=== PATIENT | female | born 1955 | race African-American/Black ===

== ENCOUNTER 2024-04-30 12:22 | Inpatient (IN) | payer MEDICARE, MEDICAID ==
[~2024-04-30] VITALS: Ht 162.6 cm; Wt 61.8 kg
[2024-04-30 14:24] LABS: BASOPHILS % 0.4 % (0.0-2.0); EOSINOPHILS % 0.3 % (0.0-5.0); HEMOGLOBIN. 12.8 g/dL (12.0-16.0); LYMPHOCYTES % 22.5 % (20.0-50.0); MEAN CORPUSCULAR HEMOGLOBIN 29.7 pg (28.0-32.0); MEAN CORPUSCULAR HGB CONC 32.7 g/dL (31.0-37.0); MEAN CORPUSCULAR VOLUME 90.9 fL (81.0-99.0); MEAN PLATELET VOLUME 8.8 fl (7.4-10.4); MONOCYTES % 5.2 % (2.0-8.0); NEUTROPHILS % 71.6 % (40.0-76.0); PLATELET 499 x1000/uL (130-400); RED BLOOD CELL COUNT 4.29 mill/uL (4.2-5.4); RED CELL DISTRIBUTION WIDTH 13.9 % (11.6-14.6)
[2024-04-30 14:29] LABS: CHLORIDE 103 mEq/L (98-107); POTASSIUM 3.4 mEq/L (3.5-5.1); SODIUM 137 mEq/L (136-145)
[2024-04-30 14:30] LABS: CARBON DIOXIDE 23 mEq/L (21-32)
[2024-04-30] MEDS ORDERED: HEPARIN 5000 UNITS/ML VIAL IV SCH ×2 (14:30→14:45)
[2024-04-30] MEDS ORDERED: HEPARIN 25,000 UNITS PREMIX 250 ML IV PRN (14:30)
[2024-04-30 14:31] LABS: CALCIUM 11.3 mg/dL (8.7-10.4)
[2024-04-30 14:35] LABS: CREATININE 1.1 mg/dL (0.6-1.0)
[2024-04-30 14:36] LABS: GLUCOSE 162 mg/dL (70-105); UREA NITROGEN BLOOD 13 mg/dL (9-23)
[2024-04-30 14:37] LABS: ALANINE AMINOTRANSFERASE < 7 IU/L (10-49); ALBUMIN 5.2 g/dL (3.2-4.8); ASPARTATE AMINOTRANSFERASE 20 IU/L (<34)
[2024-04-30 14:38] LABS: BILIRUBIN TOTAL 0.6 mg/dL (0.1-1.0); PROTEIN TOTAL 8.8 g/dL (6.0-8.3)
[2024-04-30 14:54] LABS: TROPONIN I HIGH SENSITIVITY 6 ng/L (3.0-34)
[2024-04-30] MEDS ORDERED: VANCOMYCIN 1G PREMIX 200 ML IV SCH (15:45)
[2024-04-30] MEDS ORDERED: LACTATED RINGERS 1,000 ML IV SCH (15:45)
[2024-04-30] MEDS: MORPHINE SULFATE 4 MG/ML INJ (FOR IV/IM USE) IV ONE (15:45)
[2024-04-30] MEDS ORDERED: CEFEPIME 2GM IN DEXT 5% 100ML IV ONE (15:45)
[2024-04-30] MEDS: METRONIDAZOLE 500 MG PREMIX 100 ML IV ONE (15:45)
[2024-04-30] MEDS ORDERED: CEFEPIME 2GM/100ML 100 ML IV NR (16:00)
[2024-04-30] MEDS ORDERED: HEPARIN BOLUS PRN aPTT 37-44 IV ×2 (16:00)
[2024-04-30] MEDS ORDERED: HEPARIN BOLUS PRN aPTT <36 IV ×2 (16:00)
[2024-04-30] MEDS: IOHEXOL-350 100 ML BOTTLE ONE ×2 (17:15→21:28)
[2024-04-30 18:08] VITALS: BP 188/108; PULSE 116; RESP 18; TEMP 37.1964
[2024-04-30 18:15] VITALS: BP 188/108; PULSE 116; RESP 18; TEMP 37.2252; O2SAT 99
[2024-04-30] MEDS ORDERED: ONDANSETRON HCL 4MG/2ML INJ IV PRN (18:15)
[2024-04-30] MEDS ORDERED: KETOROLAC 30MG/ML VIAL IV PRN (18:15)
[2024-04-30] MEDS: DEXT 5%/LACTATED RINGERS 1,000 ML IV SCH (18:15)
[2024-04-30] MEDS ORDERED: GUAIFENESIN 200MG/10ML SUGAR FREE UDC PO PRN (18:15)
[2024-04-30] MEDS ORDERED: IPRATROPIUM/ALBUTEROL 0.5-3(2.5)MG/3ML NEB NEB PRN (18:15)
[2024-04-30] MEDS ORDERED: ACETAMINOPHEN 325MG TABLET PO PRN ×2 (18:15)
[2024-04-30] MEDS ORDERED: TRAMADOL 50MG TABLET PO PRN (18:15)
[2024-04-30] MEDS ORDERED: ZOLPIDEM TARTRATE 5MG TABLET PO PRN (18:15)
[2024-04-30] MEDS ORDERED: MAGNESIUM/ALUMINUM HYDROXIDE/SIMETHICONE 30ML UDC PO PRN (18:15)
[2024-04-30] MEDS ORDERED: DOCUSATE SODIUM 100MG CAPSULE PO PRN (18:15)
[2024-04-30] MEDS: HEPARIN 80 UNITS/KG BOLUS IV NR (18:39)
[2024-04-30 20:00] VITALS: BP 145/108; PULSE 109; RESP 17; TEMP 37.05852; O2SAT 100
[2024-04-30 20:10] LABS: IRON 48 ug/dL (50-170)
[2024-04-30 20:11] LABS: TRIGLYCERIDE 170 mg/dL (0-150)
[2024-04-30 20:12] LABS: LDL CHOLESTEROL 177 mg/dL (5-100)
[2024-04-30 20:13] LABS: CHOLESTEROL 223 mg/dL (<200); HDL CHOLESTEROL 29 mg/dL (>65); TOTAL IRON BINDING CAPACITY 203 ug/dl (250-425)
[2024-04-30] MEDS: PIPERACILLIN/TAZO 3.375G/50ML 50 ML IV SCH (20:14)
[2024-04-30 20:15] LABS: FOLIC ACID (FOLATE) SERUM 9.17 ng/mL (>5.38); T4 FREE 1.41 ng/dL (0.89-1.76); VITAMIN B12 SERUM 814 pg/mL (211-911)
[2024-04-30] MEDS: POTASSIUM CHLORIDE 20MEQ TABLET SR PO NR (20:15)
[2024-04-30 20:16] LABS: THYROID STIMULATING HORMONE 3.31 uIU/mL (0.55-4.78)
[2024-04-30] MEDS: CLONIDINE 0.1MG TABLET PO PRN (20:16)
[2024-04-30] MEDS: AMLODIPINE 10MG TABLET PO SCH (20:16)
[2024-04-30] MEDS: HEPARIN 25,000 UNITS PREMIX 250 ML IV SCH (20:27)
[2024-04-30] MEDS: VANCOMYCIN 1GM/200ML PMX (BAXTER) IV NR (21:00)
[2024-04-30] MEDS: FAMOTIDINE 20MG TABLET PO SCH (21:02)
[2024-04-30 22:00] VITALS: BP 142/86; PULSE 94; RESP 17; O2SAT 100
[2024-05-01] VITALS (8 sets, daily range): BP systolic 123–162; BP diastolic 85–147; PULSE 77–110; RESP 10–28; TEMP 36.3918–37.05852; O2SAT 98–100
[2024-05-01 04:31] LABS: CARBON DIOXIDE 23 mEq/L (21-32); CHLORIDE 105 mEq/L (98-107); POTASSIUM 3.5 mEq/L (3.5-5.1); SODIUM 138 mEq/L (136-145)
[2024-05-01 04:32] LABS: CALCIUM 10.7 mg/dL (8.7-10.4)
[2024-05-01 04:36] LABS: CREATININE 0.9 mg/dL (0.6-1.0); GLUCOSE 93 mg/dL (70-105)
[2024-05-01 04:37] LABS: UREA NITROGEN BLOOD 10 mg/dL (9-23)
[2024-05-01 04:38] LABS: ALANINE AMINOTRANSFERASE < 7 IU/L (10-49); ALBUMIN 4.6 g/dL (3.2-4.8)
[2024-05-01 04:39] LABS: ASPARTATE AMINOTRANSFERASE 20 IU/L (<34); BILIRUBIN TOTAL 0.5 mg/dL (0.1-1.0); PHOSPHORUS 3.2 mg/dL (2.5-4.9); PROTEIN TOTAL 7.9 g/dL (6.0-8.3)
[2024-05-01 04:40] LABS: BASOPHILS % 0.6 % (0.0-2.0); EOSINOPHILS % 1.3 % (0.0-5.0); HEMATOCRIT. 33.5 % (36.0-48.0); HEMOGLOBIN. 10.9 g/dL (12.0-16.0); MEAN CORPUSCULAR HEMOGLOBIN 29.7 pg (28.0-32.0); MEAN CORPUSCULAR HGB CONC 32.5 g/dL (31.0-37.0); MEAN CORPUSCULAR VOLUME 91.4 fL (81.0-99.0); MONOCYTES % 8.2 % (2.0-8.0); NEUTROPHILS % 59.9 % (40.0-76.0); PLATELET 418 x1000/uL (130-400); RED BLOOD CELL COUNT 3.67 mill/uL (4.2-5.4); WHITE BLOOD COUNT 10.1 x1000/uL (4.5-11.0)
[2024-05-01] MEDS ORDERED: IODIXANOL 320MG/ML 100 ML BOTTLE IV ONE ×2 (09:05→12:23)
[2024-05-01] MEDS ORDERED: LIDOCAINE HCL 1% 20ML VIAL ONE (09:05)
[2024-05-01] MEDS ORDERED: HEPARIN 1000 UNITS/ML 10ML ONE (09:05)
[2024-05-01] MEDS: VANCOMYCIN 500MG/100ML IV SCH (10:24)
[2024-05-01] MEDS ORDERED: FENTANYL CITRATE/PF 50MCG/ML 2ML VIAL ONE ×2 (11:31→12:42)
[2024-05-01] MEDS ORDERED: MIDAZOLAM HCL 2 MG/2 ML VIAL ONE ×2 (11:31→12:25)
[2024-05-01] MEDS ORDERED: DIPHENHYDRAMINE 50MG/ML VIAL ONE (11:44)
[2024-05-01] MEDS: CLOPIDOGREL 75MG TABLET PO SCH (12:00)
[2024-05-01] MEDS ORDERED: HYDRALAZINE 20MG/ML VIAL ONE (12:16)
[2024-05-02] VITALS: BP 156/88; PULSE 90; RESP 17; TEMP 36.72516; O2SAT 100
[2024-05-02 04:15] VITALS: BP 167/83; PULSE 99; RESP 19; TEMP 36.28068; O2SAT 95
[2024-05-02 04:37] LABS: *AMPHETAMINES SCREEN URINE NEGATIVE (NEGATIVE); *BARBITURATES SCREEN URINE NEGATIVE (NEGATIVE); *BENZODIAZEPINES SCREEN URINE PRESUMPTIVE POSITIVE (NEGATIVE); *COCAINE SCREEN URINE NEGATIVE (NEGATIVE)
[2024-05-02 04:38] LABS: CANNABINOID URINE SCREEN NEGATIVE (NEGATIVE); ECSTASY MDMA SCREEN URINE NEGATIVE (NEGATIVE); METHADONE URINE SCREEN NEGATIVE (NEGATIVE); OPIATES URINE SCREEN NEGATIVE (NEGATIVE); PHENCYCLIDINE URINE SCREEN NEGATIVE (NEGATIVE)
[2024-05-02 04:39] LABS: CLARITY URINE TURBID (CLEAR); COLOR URINE YELLOW (YELLOW); GLUCOSE URINE NEGATIVE (NEGATIVE); KETONES URINE 1+ (NEGATIVE); LEUKOCYTE ESTERASE URINE NEGATIVE (NEGATIVE); NITRITE URINE NEGATIVE (NEGATIVE); OCCULT BLOOD URINE TRACE (NEGATIVE); PROTEIN URINE 1+ (NEGATIVE); SPECIFIC GRAVITY URINE 1.083 (1.005-1.030)
[2024-05-02 06:15] LABS: WBC URINE 0-2 /hpf (0-2)
[2024-05-02 06:16] LABS: BACTERIA URINE 1+; SQUAMOUS EPITHELIAL CELL URINE 1+ /lpf (RARE/1+)
[2024-05-02 06:17] LABS: CHLORIDE 106 mEq/L (98-107); POTASSIUM 3.2 mEq/L (3.5-5.1); SODIUM 138 mEq/L (136-145)
[2024-05-02 06:18] LABS: CALCIUM PHOSPHATE CRYSTALS UR 2+ /lpf
[2024-05-02 06:18] LABS: CALCIUM 10.1 mg/dL (8.7-10.4); CARBON DIOXIDE 23 mEq/L (21-32)
[2024-05-02 06:23] LABS: CREATININE 0.8 mg/dL (0.6-1.0); GLUCOSE 122 mg/dL (70-105); UREA NITROGEN BLOOD 7 mg/dL (9-23)
[2024-05-02 08:00] VITALS: BP 139/75; PULSE 101; RESP 18; TEMP 36.44736; O2SAT 97
[2024-05-02] MEDS ORDERED: NALOXONE HCL 0.4MG/ML VIAL IV PRN (10:00)
[2024-05-02 12:00] VITALS: BP 143/75; PULSE 96; RESP 18; TEMP 36.55848; O2SAT 99
[2024-05-02] MEDS: KCL 20MEQ/100ML PREMIX 100 ML IV SCH (13:07)
[2024-05-02 16:00] VITALS: BP 146/84; PULSE 94; RESP 18; TEMP 36.9474; O2SAT 98
[2024-05-02 20:00] VITALS: BP 154/89; PULSE 96; RESP 23; TEMP 36.83628; O2SAT 99
[2024-05-03] VITALS: BP 140/77; PULSE 95; RESP 16; TEMP 36.50292; O2SAT 99
[2024-05-03 04:00] VITALS: BP 90/82; PULSE 91; RESP 21; TEMP 36.3918; O2SAT 99
[2024-05-03 06:53] LABS: CALCIUM 9.4 mg/dL (8.7-10.4); CARBON DIOXIDE 21 mEq/L (21-32); CHLORIDE 107 mEq/L (98-107); POTASSIUM 3.3 mEq/L (3.5-5.1); SODIUM 136 mEq/L (136-145)
[2024-05-03 06:59] LABS: CREATININE 0.8 mg/dL (0.6-1.0); GLUCOSE 94 mg/dL (70-105); UREA NITROGEN BLOOD 6 mg/dL (9-23)
[2024-05-03 08:00] VITALS: BP 145/73; PULSE 96; RESP 23; TEMP 36.6696; O2SAT 99
[2024-05-03] MEDS ORDERED: KETOROLAC 15MG/ML VIAL IV PRN (08:34)
[2024-05-03] MEDS: POTASSIUM CHLORIDE 20MEQ TABLET SR PO NR (08:48)
[2024-05-03 12:00] VITALS: BP 137/89; PULSE 101; RESP 23; TEMP 36.72516; O2SAT 99
[2024-05-03] MEDS: KCL 20MEQ/100ML PREMIX 100 ML IV NR (12:10)
[2024-05-03 16:00] VITALS: BP 132/81; PULSE 95; RESP 21; TEMP 36.83628; O2SAT 99
[2024-05-03 20:00] VITALS: BP 159/85; PULSE 93; RESP 20; TEMP 36.78072; O2SAT 100
[2024-05-04] VITALS: BP 146/92; PULSE 99; RESP 14; TEMP 36.61404; O2SAT 99
[2024-05-04 04:00] VITALS: BP 136/72; PULSE 96; RESP 16; TEMP 36.55848; O2SAT 100
[2024-05-04 06:53] LABS: CALCIUM 9.7 mg/dL (8.7-10.4); CARBON DIOXIDE 20 mEq/L (21-32); CHLORIDE 104 mEq/L (98-107); POTASSIUM 3.2 mEq/L (3.5-5.1); SODIUM 134 mEq/L (136-145)
[2024-05-04 06:58] LABS: CREATININE 0.8 mg/dL (0.6-1.0)
[2024-05-04 06:59] LABS: GLUCOSE 96 mg/dL (70-105)
[2024-05-04 07:01] LABS: PHOSPHORUS 3.2 mg/dL (2.5-4.9)
[2024-05-04 07:33] LABS: UREA NITROGEN BLOOD < 5 mg/dL (9-23)
[2024-05-04 08:00] VITALS: BP 146/114; PULSE 100; RESP 24; TEMP 36.72516; O2SAT 100
[2024-05-04 12:00] VITALS: BP 124/76; PULSE 97; RESP 17; TEMP 37.05852; O2SAT 100
[2024-05-04] MEDS: POTASSIUM CHLORIDE 20MEQ/PACKET PO NR (12:54)
[2024-05-04] MEDS: MAGNESIUM 2 G PREMIX 50 ML IV NR (12:54)
[2024-05-04] MEDS: LORAZEPAM 2MG/ML INJ IV NR (14:05)
[2024-05-04 17:09] VITALS: BP 171/83; PULSE 101; RESP 19; TEMP 36.83628; O2SAT 100
[2024-05-04 20:00] VITALS: BP 126/75; PULSE 105; RESP 25; TEMP 36.83628; O2SAT 98
[2024-05-05] VITALS: BP 114/79; PULSE 92; RESP 18; TEMP 36.6696; O2SAT 99
[2024-05-05 04:00] VITALS: BP 130/78; PULSE 94; RESP 19; TEMP 36.44736; O2SAT 98
[2024-05-05 08:00] VITALS: BP 141/88; PULSE 96; RESP 19; TEMP 36.61404; O2SAT 98
[2024-05-05 12:00] VITALS: BP 102/78; PULSE 94; RESP 17; TEMP 37.11408; O2SAT 99
[2024-05-05 13:47] LABS: CHLORIDE 105 mEq/L (98-107); POTASSIUM 3.6 mEq/L (3.5-5.1); SODIUM 134 mEq/L (136-145)
[2024-05-05 13:48] LABS: CARBON DIOXIDE 23 mEq/L (21-32)
[2024-05-05 13:49] LABS: CALCIUM 9.2 mg/dL (8.7-10.4)
[2024-05-05 13:53] LABS: CREATININE 0.7 mg/dL (0.6-1.0); GLUCOSE 84 mg/dL (70-105); UREA NITROGEN BLOOD 8 mg/dL (9-23)
[2024-05-05] MEDS: ASPIRIN 81MG TABLET PO SCH (14:26)
[2024-05-05 16:00] VITALS: BP 92/68; PULSE 105; RESP 14; TEMP 36.89184; O2SAT 100
[2024-05-05 20:00] VITALS: BP 117/90; PULSE 107; RESP 19; TEMP 37.66968; O2SAT 100
[2024-05-06] VITALS: BP 126/87; PULSE 108; RESP 14; TEMP 36.78072; O2SAT 96
[2024-05-06 04:00] VITALS: BP 152/74; PULSE 96; RESP 17; TEMP 36.55848; O2SAT 98
[2024-05-06 07:03] LABS: CARBON DIOXIDE 23 mEq/L (21-32); CHLORIDE 104 mEq/L (98-107); POTASSIUM 3.5 mEq/L (3.5-5.1); SODIUM 135 mEq/L (136-145)
[2024-05-06 07:04] LABS: CALCIUM 9.3 mg/dL (8.7-10.4)
[2024-05-06 07:06] LABS: INR 0.9; PROTHROMBIN TIME 10.1 sec (9.6-11.0)
[2024-05-06 07:09] LABS: CREATININE 0.8 mg/dL (0.6-1.0); GLUCOSE 90 mg/dL (70-105); UREA NITROGEN BLOOD 10 mg/dL (9-23)
[2024-05-06 07:11] LABS: PHOSPHORUS 3.8 mg/dL (2.5-4.9)
[2024-05-06 07:14] LABS: BASOPHILS % 0.4 % (0.0-2.0); EOSINOPHILS % 2.1 % (0.0-5.0); HEMATOCRIT. 29.7 % (36.0-48.0); HEMOGLOBIN. 9.6 g/dL (12.0-16.0); LYMPHOCYTES % 25.5 % (20.0-50.0); MEAN CORPUSCULAR HEMOGLOBIN 29.3 pg (28.0-32.0); MEAN CORPUSCULAR HGB CONC 32.4 g/dL (31.0-37.0); MEAN CORPUSCULAR VOLUME 90.5 fL (81.0-99.0); MEAN PLATELET VOLUME 8.6 fl (7.4-10.4); MONOCYTES % 11.7 % (2.0-8.0); NEUTROPHILS % 60.3 % (40.0-76.0); PLATELET 338 x1000/uL (130-400); RED BLOOD CELL COUNT 3.28 mill/uL (4.2-5.4); RED CELL DISTRIBUTION WIDTH 14.4 % (11.6-14.6); WHITE BLOOD COUNT 7.2 x1000/uL (4.5-11.0)
[2024-05-06 08:00] VITALS: BP 145/91; PULSE 97; RESP 18; TEMP 36.72516; O2SAT 96
[2024-05-06 12:00] VITALS: BP 129/74; PULSE 90; RESP 15; TEMP 36.55848; O2SAT 97
[2024-05-06 16:00] VITALS: BP 145/72; PULSE 98; RESP 20; TEMP 36.83628; O2SAT 96
[2024-05-06 20:10] VITALS: BP 139/64; PULSE 97; RESP 15; TEMP 37.05852; O2SAT 100
[2024-05-06] MEDS: ATORVASTATIN CALCIUM 40MG TABLET PO SCH (22:00)
[2024-05-07] VITALS (7 sets, daily range): BP systolic 114–138; BP diastolic 71–98; PULSE 88–104; RESP 12–19; TEMP 36.55848–37.33632; O2SAT 96–100
[2024-05-07] MEDS: MENTHOL/LANOLIN/CALAMINE/ZN OX OINT 71GM TOP SCH (01:02)
[2024-05-07] MEDS: AMLODIPINE 10MG TABLET NG SCH (08:30)
[2024-05-07] MEDS: ASPIRIN 81MG TABLET NG SCH (08:30)
[2024-05-07] MEDS: FAMOTIDINE 20MG TABLET NG SCH (08:31)
[2024-05-07] MEDS: CLOPIDOGREL 75MG TABLET NG SCH (08:31)
[2024-05-07] MEDS ORDERED: DOCUSATE SODIUM SUGAR FREE 100MG/10ML UDC GT PRN (15:00)
[2024-05-08 00:13] VITALS: BP 135/80; PULSE 90; RESP 14; TEMP 36.89184
[2024-05-08 04:00] VITALS: BP 137/91; PULSE 96; RESP 15; TEMP 37.11408; O2SAT 98
[2024-05-08 06:33] LABS: CALCIUM 9.5 mg/dL (8.7-10.4); CHLORIDE 105 mEq/L (98-107); POTASSIUM 3.3 mEq/L (3.5-5.1); SODIUM 136 mEq/L (136-145)
[2024-05-08 06:38] LABS: CREATININE 0.7 mg/dL (0.6-1.0)
[2024-05-08 06:39] LABS: GLUCOSE 107 mg/dL (70-105)
[2024-05-08 06:47] LABS: CARBON DIOXIDE 23 mEq/L (21-32)
[2024-05-08 07:55] LABS: BASOPHILS % 0.8 % (0.0-2.0); EOSINOPHILS % 2.9 % (0.0-5.0); HEMATOCRIT. 27.7 % (36.0-48.0); LYMPHOCYTES % 28.2 % (20.0-50.0); MEAN CORPUSCULAR HEMOGLOBIN 29.2 pg (28.0-32.0); MEAN CORPUSCULAR HGB CONC 32.5 g/dL (31.0-37.0); MEAN CORPUSCULAR VOLUME 89.7 fL (81.0-99.0); MEAN PLATELET VOLUME 8.7 fl (7.4-10.4); MONOCYTES % 10.5 % (2.0-8.0); NEUTROPHILS % 57.6 % (40.0-76.0); PLATELET 371 x1000/uL (130-400); RED BLOOD CELL COUNT 3.09 mill/uL (4.2-5.4); WHITE BLOOD COUNT 8.7 x1000/uL (4.5-11.0)
[2024-05-08 08:00] VITALS: BP 120/87; PULSE 85; RESP 17; TEMP 37.11408; O2SAT 99
[2024-05-08 08:16] LABS: UREA NITROGEN BLOOD < 5 mg/dL (9-23)
[2024-05-08 12:00] VITALS: BP 127/89; PULSE 81; RESP 12; TEMP 37.00296; O2SAT 100
[2024-05-08 16:00] VITALS: BP 158/77; PULSE 86; RESP 18; TEMP 36.83628; O2SAT 98
[2024-05-08] MEDS ORDERED: POTASSIUM CHLORIDE 20MEQ TABLET SR PO NR (16:45)
[2024-05-08] MEDS: POTASSIUM CHLORIDE 20MEQ/PACKET NG NR (17:16)
[2024-05-08 20:00] VITALS: BP 139/81; PULSE 94; RESP 16; TEMP 37.00296; O2SAT 99
[2024-05-09] VITALS (7 sets, daily range): BP systolic 114–158; BP diastolic 63–88; PULSE 79–99; RESP 13–24; TEMP 36.55848–37.11408; O2SAT 92–100
[2024-05-09 06:37] LABS: INR 0.9; PROTHROMBIN TIME 10.3 sec (9.6-11.0)
[2024-05-09 06:38] LABS: CHLORIDE 104 mEq/L (98-107); POTASSIUM 3.8 mEq/L (3.5-5.1); SODIUM 135 mEq/L (136-145)
[2024-05-09 06:39] LABS: CARBON DIOXIDE 24 mEq/L (21-32)
[2024-05-09 06:40] LABS: CALCIUM 9.6 mg/dL (8.7-10.4)
[2024-05-09 06:45] LABS: CREATININE 0.7 mg/dL (0.6-1.0); GLUCOSE 95 mg/dL (70-105); UREA NITROGEN BLOOD 6 mg/dL (9-23)
[2024-05-09 06:55] LABS: BASOPHILS % 0.7 % (0.0-2.0); EOSINOPHILS % 1.8 % (0.0-5.0); HEMATOCRIT. 29.1 % (36.0-48.0); HEMOGLOBIN. 9.4 g/dL (12.0-16.0); LYMPHOCYTES % 29.7 % (20.0-50.0); MEAN CORPUSCULAR HEMOGLOBIN 29.2 pg (28.0-32.0); MEAN CORPUSCULAR HGB CONC 32.3 g/dL (31.0-37.0); MEAN CORPUSCULAR VOLUME 90.3 fL (81.0-99.0); MEAN PLATELET VOLUME 8.1 fl (7.4-10.4); MONOCYTES % 11.4 % (2.0-8.0); NEUTROPHILS % 56.4 % (40.0-76.0); PLATELET 378 x1000/uL (130-400); RED BLOOD CELL COUNT 3.23 mill/uL (4.2-5.4); RED CELL DISTRIBUTION WIDTH 14.2 % (11.6-14.6); WHITE BLOOD COUNT 8.6 x1000/uL (4.5-11.0)
[2024-05-09] MEDS: ACETAMINOPHEN 650MG/20.3ML UDC GT PRN (20:35)
[2024-05-10] VITALS: BP_SYST 121; BP_SYST 132; BP_DIAS 66; BP_DIAS 90; PULSE 80; PULSE 93; RESP 18; RESP 23; TEMP 36.72516; TEMP 37.05852; O2SAT 100; O2SAT 99
[2024-05-10 04:00] VITALS: BP 142/77; PULSE 93; RESP 18; TEMP 36.89184; O2SAT 94
[2024-05-10 08:00] VITALS: BP 154/76; PULSE 103; RESP 21; TEMP 36.89184; O2SAT 99
[2024-05-10 12:00] VITALS: BP 143/83; PULSE 100; RESP 14; TEMP 36.72516; O2SAT 100
[2024-05-10 16:00] VITALS: BP 132/81; PULSE 98; RESP 17; TEMP 36.6696; O2SAT 98
[2024-05-10 20:00] VITALS: BP 147/78; PULSE 106; RESP 16; TEMP 37.33632; O2SAT 100
[2024-05-11] VITALS: BP 149/46; PULSE 99; RESP 15; TEMP 37.11408; O2SAT 95
[2024-05-11 04:00] VITALS: BP 134/80; PULSE 99; RESP 18; TEMP 37.05852; O2SAT 100
[2024-05-11 08:00] VITALS: BP 148/122; PULSE 99; RESP 17; TEMP 36.78072; O2SAT 99
[2024-05-11 12:00] VITALS: BP 128/84; PULSE 100; RESP 16; TEMP 36.78072; O2SAT 99
[2024-05-11 16:00] VITALS: BP 122/78; PULSE 98; RESP 15; TEMP 36.78072; O2SAT 98
[2024-05-11 20:00] VITALS: BP 146/73; PULSE 96; RESP 14; TEMP 36.00288; O2SAT 99
[2024-05-12] VITALS: BP 135/80; PULSE 107; RESP 14; TEMP 36.16956; O2SAT 98
[2024-05-12 04:00] VITALS: BP 151/94; PULSE 97; RESP 10; TEMP 36.05844; O2SAT 100
[2024-05-12 08:00] VITALS: BP 146/75; PULSE 97; RESP 16; TEMP 36.00288; O2SAT 99
[2024-05-12 12:00] VITALS: BP 130/76; PULSE 97; RESP 21; TEMP 36.33624; O2SAT 99
[2024-05-12 16:00] VITALS: BP 125/109; PULSE 100; RESP 17; TEMP 36.44736; O2SAT 100
[2024-05-12 20:00] VITALS: BP 145/119; PULSE 102; RESP 18; TEMP 36.114; O2SAT 100
[2024-05-13] VITALS: BP 116/80; PULSE 88; RESP 17; TEMP 36.114; O2SAT 100
[2024-05-13 04:00] VITALS: BP 135/74; PULSE 71; RESP 18; TEMP 36.6696; O2SAT 100
[2024-05-13 08:00] VITALS: BP 131/73; PULSE 90; RESP 16; TEMP 36.83628; O2SAT 99
[2024-05-13 12:00] VITALS: BP 128/82; PULSE 60; RESP 17; TEMP 36.78072; O2SAT 100
[2024-05-13 16:00] VITALS: BP 135/65; PULSE 84; RESP 16; TEMP 36.72516; O2SAT 100
[2024-05-13 20:00] VITALS: BP 109/81; PULSE 94; RESP 16; TEMP 37.33632; O2SAT 100
[2024-05-14] VITALS (7 sets, daily range): BP systolic 108–143; BP diastolic 57–88; PULSE 94–106; RESP 15–23; TEMP 36.6696–37.16964; O2SAT 97–99
[2024-05-14 06:29] LABS: CARBON DIOXIDE 22 mEq/L (21-32); CHLORIDE 104 mEq/L (98-107); POTASSIUM 3.7 mEq/L (3.5-5.1); SODIUM 135 mEq/L (136-145)
[2024-05-14 06:30] LABS: CALCIUM 9.1 mg/dL (8.7-10.4)
[2024-05-14 06:31] LABS: BASOPHILS % 0.4 % (0.0-2.0); EOSINOPHILS % 1.5 % (0.0-5.0); HEMATOCRIT. 24.5 % (36.0-48.0); HEMOGLOBIN. 8.1 g/dL (12.0-16.0); LYMPHOCYTES % 25.4 % (20.0-50.0); MEAN CORPUSCULAR HEMOGLOBIN 29.6 pg (28.0-32.0); MEAN CORPUSCULAR VOLUME 89.6 fL (81.0-99.0); MEAN PLATELET VOLUME 8.2 fl (7.4-10.4); MONOCYTES % 8.5 % (2.0-8.0); NEUTROPHILS % 64.2 % (40.0-76.0); PLATELET 471 x1000/uL (130-400); RED BLOOD CELL COUNT 2.73 mill/uL (4.2-5.4); RED CELL DISTRIBUTION WIDTH 14.5 % (11.6-14.6); WHITE BLOOD COUNT 10.1 x1000/uL (4.5-11.0)
[2024-05-14 06:35] LABS: CREATININE 0.7 mg/dL (0.6-1.0)
[2024-05-14 06:36] LABS: UREA NITROGEN BLOOD 12 mg/dL (9-23)
[2024-05-14 06:38] LABS: INR 0.9; PROTHROMBIN TIME 10.4 sec (9.6-11.0)
[2024-05-14 07:03] LABS: GLUCOSE 408 mg/dL (70-105)
[2024-05-14] MEDS: ACETAMINOPHEN 650MG/20.3ML UDC NG SCH (16:26)
[2024-05-15] VITALS: BP 149/93; PULSE 101; RESP 17; TEMP 37.05852; O2SAT 99
[2024-05-15 03:22] LABS: CHLORIDE 103 mEq/L (98-107); POTASSIUM 3.7 mEq/L (3.5-5.1); SODIUM 136 mEq/L (136-145)
[2024-05-15 03:23] LABS: CARBON DIOXIDE 25 mEq/L (21-32)
[2024-05-15 03:24] LABS: CALCIUM 9.6 mg/dL (8.7-10.4)
[2024-05-15 03:25] LABS: INR 0.9; PROTHROMBIN TIME 10.4 sec (9.6-11.0)
[2024-05-15 03:28] LABS: CREATININE 0.6 mg/dL (0.6-1.0); GLUCOSE 98 mg/dL (70-105)
[2024-05-15 03:29] LABS: UREA NITROGEN BLOOD 15 mg/dL (9-23)
[2024-05-15 03:45] LABS: BASOPHILS % 0.6 % (0.0-2.0); EOSINOPHILS % 1.6 % (0.0-5.0); HEMATOCRIT. 26.1 % (36.0-48.0); HEMOGLOBIN. 8.4 g/dL (12.0-16.0); LYMPHOCYTES % 25.9 % (20.0-50.0); MEAN CORPUSCULAR HEMOGLOBIN 28.4 pg (28.0-32.0); MEAN CORPUSCULAR HGB CONC 32.2 g/dL (31.0-37.0); MEAN CORPUSCULAR VOLUME 88.3 fL (81.0-99.0); MONOCYTES % 8.1 % (2.0-8.0); NEUTROPHILS % 63.8 % (40.0-76.0); PLATELET 539 x1000/uL (130-400); RED BLOOD CELL COUNT 2.96 mill/uL (4.2-5.4); RED CELL DISTRIBUTION WIDTH 14.5 % (11.6-14.6); WHITE BLOOD COUNT 9.8 x1000/uL (4.5-11.0)
[2024-05-15 04:00] VITALS: BP 132/79; PULSE 99; RESP 17; TEMP 36.9474; O2SAT 100
[2024-05-15 08:00] VITALS: BP 133/76; PULSE 86; RESP 17; TEMP 36.72516; O2SAT 99
[2024-05-15] MEDS ORDERED: CEFAZOLIN 1000MG PREMIX 50 ML IV NR (08:30)
[2024-05-15 12:00] VITALS: BP 134/101; PULSE 99; RESP 13; TEMP 36.9474; O2SAT 99
[2024-05-15 16:00] VITALS: BP 133/67; PULSE 96; RESP 17; TEMP 36.61404; O2SAT 100
[2024-05-15 19:29] VITALS: BP 144/79; PULSE 104; RESP 12; TEMP 37.33632; O2SAT 100
[2024-05-16] VITALS: BP 136/97; PULSE 89; RESP 16; TEMP 37.2252; O2SAT 98
[2024-05-16 04:00] VITALS: BP 123/111; PULSE 89; RESP 15; TEMP 37.05852; O2SAT 100
[2024-05-16 06:42] LABS: CARBON DIOXIDE 25 mEq/L (21-32); CHLORIDE 102 mEq/L (98-107); POTASSIUM 3.9 mEq/L (3.5-5.1); SODIUM 137 mEq/L (136-145)
[2024-05-16 06:44] LABS: CALCIUM 9.8 mg/dL (8.7-10.4)
[2024-05-16 06:47] LABS: CREATININE 0.7 mg/dL (0.6-1.0)
[2024-05-16 06:48] LABS: GLUCOSE 101 mg/dL (70-105); UREA NITROGEN BLOOD 15 mg/dL (9-23)
[2024-05-16 06:57] LABS: INR 0.9; PROTHROMBIN TIME 10.3 sec (9.6-11.0)
[2024-05-16 07:05] LABS: BASOPHILS % 0.6 % (0.0-2.0); EOSINOPHILS % 2.4 % (0.0-5.0); HEMATOCRIT. 25.7 % (36.0-48.0); HEMOGLOBIN. 8.3 g/dL (12.0-16.0); LYMPHOCYTES % 34.7 % (20.0-50.0); MEAN CORPUSCULAR HEMOGLOBIN 28.8 pg (28.0-32.0); MEAN CORPUSCULAR HGB CONC 32.3 g/dL (31.0-37.0); MEAN CORPUSCULAR VOLUME 89.1 fL (81.0-99.0); MEAN PLATELET VOLUME 8.1 fl (7.4-10.4); MONOCYTES % 8.3 % (2.0-8.0); PLATELET 554 x1000/uL (130-400); RED BLOOD CELL COUNT 2.88 mill/uL (4.2-5.4); RED CELL DISTRIBUTION WIDTH 14.6 % (11.6-14.6); WHITE BLOOD COUNT 8.5 x1000/uL (4.5-11.0)
[2024-05-16 08:00] VITALS: BP 126/88; PULSE 90; RESP 16; TEMP 36.78072; O2SAT 99
[2024-05-16 12:00] VITALS: BP 116/70; PULSE 81; RESP 17; TEMP 36.55848; O2SAT 100
[2024-05-16] MEDS ORDERED: CEFAZOLIN 1000MG PREMIX 50 ML IV NR (15:30)
[2024-05-16 16:00] VITALS: BP 128/68; PULSE 80; RESP 15; TEMP 36.72516; O2SAT 100
[2024-05-16] MEDS ORDERED: PROPOFOL 200MG/20ML VIAL IV ONE ×2 (17:18→17:40)
[2024-05-16 20:00] VITALS: BP 132/82; PULSE 108; RESP 21; TEMP 37.00296; O2SAT 100
[2024-05-17] VITALS: BP 141/100; PULSE 111; RESP 16; TEMP 37.28076; O2SAT 99
[2024-05-17 04:00] VITALS: BP 148/83; PULSE 108; RESP 17; TEMP 37.16964; O2SAT 98
[2024-05-17 08:00] VITALS: BP 146/77; PULSE 93; RESP 16; TEMP 37.33632; O2SAT 98
[2024-05-17 12:00] VITALS: BP 151/86; PULSE 89; RESP 16; TEMP 37.16964; O2SAT 99
[2024-05-17 16:00] VITALS: BP 128/80; PULSE 94; RESP 14; TEMP 36.72516; O2SAT 100
[2024-05-17 20:00] VITALS: BP 138/83; PULSE 104; RESP 18; TEMP 37.00296; O2SAT 100
[2024-05-18] VITALS: BP 121/68; PULSE 107; RESP 14; TEMP 36.22512; O2SAT 98
[2024-05-18 04:00] VITALS: BP 139/99; PULSE 110; RESP 16; TEMP 36.83628; O2SAT 99
[2024-05-18 08:00] VITALS: BP 145/82; PULSE 105; RESP 20; TEMP 37.2252; O2SAT 99
[2024-05-18 12:00] VITALS: BP 144/79; PULSE 91; RESP 20; TEMP 36.72516; O2SAT 97
[2024-05-18 16:00] VITALS: BP 149/78; PULSE 93; RESP 20; TEMP 37.39188; O2SAT 99
[2024-05-18 20:00] VITALS: BP 143/73; PULSE 104; RESP 20; TEMP 36.22512
[2024-05-19] VITALS: BP 136/77; PULSE 101; RESP 20; TEMP 36.114; O2SAT 96
[2024-05-19 04:00] VITALS: BP 134/69; PULSE 72; RESP 18; TEMP 36.33624; O2SAT 99
[2024-05-19 08:00] VITALS: BP 159/77; PULSE 97; RESP 18; TEMP 36.16956; O2SAT 98
[2024-05-19 12:00] VITALS: BP 143/62; PULSE 99; RESP 19; TEMP 36.72516; O2SAT 100
[2024-05-19 16:00] VITALS: BP 163/80; PULSE 91; RESP 19; TEMP 36.114; O2SAT 96
[2024-05-19 20:00] VITALS: BP 135/70; PULSE 88; RESP 16; TEMP 36.05844; O2SAT 99
[2024-05-20] VITALS: BP 128/58; PULSE 121; RESP 18; TEMP 36.78072; O2SAT 95
[2024-05-20 04:00] VITALS: BP 150/78; PULSE 91; RESP 18; TEMP 36.05844; O2SAT 97
[2024-05-20 08:00] VITALS: BP 139/79; PULSE 97; RESP 18; TEMP 36.28068; O2SAT 97
[2024-05-20 12:00] VITALS: BP 140/71; PULSE 86; RESP 18; TEMP 36.22512; O2SAT 100
[2024-05-20 16:00] VITALS: BP 143/43; PULSE 84; RESP 18; TEMP 36.16956; O2SAT 98
[2024-05-20 20:00] VITALS: BP 137/67; PULSE 80; RESP 16; TEMP 35.33616; O2SAT 100
[2024-05-21] VITALS: BP 137/82; PULSE 96; RESP 18; TEMP 36.00288; O2SAT 100
[2024-05-21 04:00] VITALS: BP 137/68; PULSE 93; RESP 18; TEMP 36.50292; O2SAT 99
[2024-05-21 08:00] VITALS: BP 148/77; PULSE 95; RESP 18; TEMP 36.55848; O2SAT 98
[2024-05-21 12:00] VITALS: BP 131/83; PULSE 90; RESP 19; TEMP 36.78072; O2SAT 95
[2024-05-21 16:00] VITALS: BP 155/74; PULSE 98; RESP 19; TEMP 36.33624; O2SAT 99
[2024-05-21 20:00] VITALS: BP 152/77; PULSE 96; RESP 18; TEMP 35.94732; O2SAT 98
[2024-05-22] VITALS (10 sets, daily range): BP systolic 95–155; BP diastolic 50–86; PULSE 85–150; RESP 19–29; TEMP 36.50292–37.11408; O2SAT 97–100
[2024-05-22] MEDS: LACTATED RINGERS 1,000 ML IV NR (09:30)
[2024-05-22 10:33] LABS: HEMATOCRIT 25.7 % (36.0-48.0); HEMOGLOBIN 8.5 g/dL (12.0-16.0); MEAN CORPUSCULAR HEMOGLOBIN 29.3 pg (28.0-32.0); MEAN CORPUSCULAR HGB CONC 33.2 g/dL (31.0-37.0); MEAN CORPUSCULAR VOLUME 88.3 fL (81.0-99.0); PLATELET 414 x1000/uL (130-400); RED BLOOD CELL COUNT 2.91 mill/uL (4.2-5.4); RED CELL DISTRIBUTION WIDTH 14.5 % (11.6-14.6); WHITE BLOOD COUNT 26.3 x1000/uL (4.5-11.0)
[2024-05-22 10:46] LABS: CHLORIDE 101 mEq/L (98-107); POTASSIUM 3.3 mEq/L (3.5-5.1); SODIUM 134 mEq/L (136-145)
[2024-05-22 10:47] LABS: CARBON DIOXIDE 21 mEq/L (21-32)
[2024-05-22 10:48] LABS: CALCIUM 9.8 mg/dL (8.7-10.4)
[2024-05-22 10:49] LABS: LACTIC ACID 3.3 mmol/L (0.4-2.0)
[2024-05-22 10:52] LABS: CREATININE 1.1 mg/dL (0.6-1.0); GLUCOSE 100 mg/dL (70-105); UREA NITROGEN BLOOD 14 mg/dL (9-23)
[2024-05-22 10:54] LABS: ALANINE AMINOTRANSFERASE 30 IU/L (10-49); ALBUMIN 4.2 g/dL (3.2-4.8); ASPARTATE AMINOTRANSFERASE 47 IU/L (<34)
[2024-05-22 10:55] LABS: BILIRUBIN TOTAL 0.7 mg/dL (0.1-1.0); PROTEIN TOTAL 7.2 g/dL (6.0-8.3)
[2024-05-22] MEDS: LACTATED RINGERS 1,000 ML IV ONE (12:00)
[2024-05-22] MEDS: ACETAMINOPHEN 650MG/20.3ML UDC GT PRN (12:24)
[2024-05-22] MEDS: VANCOMYCIN 1G PREMIX 200 ML IV NR (12:31)
[2024-05-22] MEDS: MEROPENEM 1G/100ML 100 ML IV SCH (12:31)
[2024-05-22] MEDS: METOPROLOL SUCCINATE 50MG ER TABLET PO SCH (12:55)
[2024-05-22] MEDS: MEROPENEM 1G/100ML IV SCH (18:21)
[2024-05-23] VITALS (12 sets, daily range): BP systolic 97–157; BP diastolic 52–121; PULSE 101–119; RESP 13–39; TEMP 36.6696–38.0586; O2SAT 98–100
[2024-05-23 06:33] LABS: CARBON DIOXIDE 23 mEq/L (21-32); CHLORIDE 106 mEq/L (98-107); POTASSIUM 2.9 mEq/L (3.5-5.1); SODIUM 139 mEq/L (136-145)
[2024-05-23 06:34] LABS: CALCIUM 9.6 mg/dL (8.7-10.4)
[2024-05-23 06:39] LABS: CREATININE 0.7 mg/dL (0.6-1.0); GLUCOSE 108 mg/dL (70-105); UREA NITROGEN BLOOD 17 mg/dL (9-23)
[2024-05-23] MEDS: LACTATED RINGERS 1,000 ML IV SCH (10:03)
[2024-05-23] MEDS: VANCOMYCIN 1G PREMIX 200 ML IV SCH (10:05)
[2024-05-23] MEDS ORDERED: POTASSIUM CHLORIDE 20MEQ TABLET SR PO NR (15:15)
[2024-05-23] MEDS: POTASSIUM CHLORIDE 20MEQ/PACKET PO NR (15:27)
[2024-05-23] MEDS ORDERED: DIATR MEGLU/DIATRIZOATE SOLN 30ML PO SCH (17:15)
[2024-05-23] MEDS: POTASSIUM CHLORIDE 40 MEQ in DEXT 5% WATER 230 ML IV NR (18:07)
[2024-05-23] MEDS: VANCOMYCIN 250MG/5ML ORAL SYRINGE PO SCH (18:38)
[2024-05-24] VITALS (12 sets, daily range): BP systolic 99–135; BP diastolic 49–84; PULSE 82–103; RESP 16–22; TEMP 36.44736–37.44744; O2SAT 99–100
[2024-05-24 04:47] LABS: CLARITY URINE CLEAR (CLEAR); COLOR URINE YELLOW (YELLOW); GLUCOSE URINE NEGATIVE (NEGATIVE); KETONES URINE NEGATIVE (NEGATIVE); LEUKOCYTE ESTERASE URINE 2+ (NEGATIVE); NITRITE URINE NEGATIVE (NEGATIVE); OCCULT BLOOD URINE NEGATIVE (NEGATIVE); PH URINE 7.5 (4.5-8.0); PROTEIN URINE TRACE (NEGATIVE); SPECIFIC GRAVITY URINE 1.019 (1.005-1.030); UROBILINOGEN URINE 0.2 E.U./dL (0.2-1.0)
[2024-05-24] MEDS: DIATR MEGLU/DIATRIZOATE SOLN 30ML ONE (05:58)
[2024-05-24 07:05] LABS: BACTERIA URINE 1+; SQUAMOUS EPITHELIAL CELL URINE 1+ /lpf (RARE/1+); WBC URINE 15-25 /hpf (0-2)
[2024-05-24 07:52] LABS: CARBON DIOXIDE 24 mEq/L (21-32); CHLORIDE 106 mEq/L (98-107); POTASSIUM 3.7 mEq/L (3.5-5.1); SODIUM 139 mEq/L (136-145)
[2024-05-24 07:53] LABS: BASOPHILS % 0.2 % (0.0-2.0); CALCIUM 9.3 mg/dL (8.7-10.4); EOSINOPHILS % 1.6 % (0.0-5.0); HEMATOCRIT. 23.3 % (36.0-48.0); HEMOGLOBIN. 7.6 g/dL (12.0-16.0); LYMPHOCYTES % 12.3 % (20.0-50.0); MEAN CORPUSCULAR HGB CONC 32.7 g/dL (31.0-37.0); MEAN CORPUSCULAR VOLUME 88.5 fL (81.0-99.0); MEAN PLATELET VOLUME 8.9 fl (7.4-10.4); MONOCYTES % 6.8 % (2.0-8.0); NEUTROPHILS % 79.1 % (40.0-76.0); PLATELET 352 x1000/uL (130-400); RED BLOOD CELL COUNT 2.63 mill/uL (4.2-5.4)
[2024-05-24 07:58] LABS: CREATININE 0.6 mg/dL (0.6-1.0); GLUCOSE 99 mg/dL (70-105); UREA NITROGEN BLOOD 16 mg/dL (9-23)
[2024-05-24] MEDS: CEFTRIAXONE 1GM/50ML 50 ML IV SCH (16:31)
[2024-05-25] VITALS (12 sets, daily range): BP systolic 110–141; BP diastolic 62–92; PULSE 89–112; RESP 13–22; TEMP 36.22512–36.61404; O2SAT 96–100
[2024-05-25 06:54] LABS: CHLORIDE 104 mEq/L (98-107); SODIUM 136 mEq/L (136-145)
[2024-05-25 06:55] LABS: CARBON DIOXIDE 23 mEq/L (21-32)
[2024-05-25 06:56] LABS: CALCIUM 9.6 mg/dL (8.7-10.4)
[2024-05-25 07:00] LABS: CREATININE 0.6 mg/dL (0.6-1.0); GLUCOSE 89 mg/dL (70-105); UREA NITROGEN BLOOD 12 mg/dL (9-23)
[2024-05-25 07:43] LABS: BASOPHILS % 0.5 % (0.0-2.0); EOSINOPHILS % 2.7 % (0.0-5.0); HEMATOCRIT. 28.2 % (36.0-48.0); HEMOGLOBIN. 8.7 g/dL (12.0-16.0); LYMPHOCYTES % 19.3 % (20.0-50.0); MEAN CORPUSCULAR HEMOGLOBIN 28.3 pg (28.0-32.0); MEAN CORPUSCULAR HGB CONC 30.6 g/dL (31.0-37.0); MEAN CORPUSCULAR VOLUME 92.2 fL (81.0-99.0); MONOCYTES % 8.8 % (2.0-8.0); NEUTROPHILS % 68.7 % (40.0-76.0); RED BLOOD CELL COUNT 3.06 mill/uL (4.2-5.4); RED CELL DISTRIBUTION WIDTH 15.5 % (11.6-14.6); WHITE BLOOD COUNT 12.8 x1000/uL (4.5-11.0)
[2024-05-25 07:56] LABS: DIFFERENTIAL COMMENT 1
[2024-05-25 12:11] LABS: PLATELET 284 x1000/uL (130-400)
[2024-05-26] VITALS (12 sets, daily range): BP systolic 104–136; BP diastolic 49–92; PULSE 89–102; RESP 13–23; TEMP 36.72516–37.503; O2SAT 94–100
[2024-05-26 06:18] LABS: CHLORIDE 104 mEq/L (98-107); POTASSIUM 3.4 mEq/L (3.5-5.1); SODIUM 137 mEq/L (136-145)
[2024-05-26 06:19] LABS: CARBON DIOXIDE 26 mEq/L (21-32)
[2024-05-26 06:20] LABS: CALCIUM 9.4 mg/dL (8.7-10.4)
[2024-05-26 06:24] LABS: CREATININE 0.6 mg/dL (0.6-1.0)
[2024-05-26 06:25] LABS: GLUCOSE 99 mg/dL (70-105); UREA NITROGEN BLOOD 14 mg/dL (9-23)
[2024-05-26 10:18] LABS: MEAN CORPUSCULAR HEMOGLOBIN 27.7 pg (28.0-32.0); MEAN CORPUSCULAR HGB CONC 31.7 g/dL (31.0-37.0); MEAN PLATELET VOLUME 8.6 fl (7.4-10.4); PLATELET 375 x1000/uL (130-400); RED BLOOD CELL COUNT 2.64 mill/uL (4.2-5.4); RED CELL DISTRIBUTION WIDTH 15.1 % (11.6-14.6); WHITE BLOOD COUNT 11.7 x1000/uL (4.5-11.0)
[2024-05-26 10:21] LABS: DIFFERENTIAL COMMENT 1
[2024-05-26 10:22] LABS: HEMATOCRIT. 23.1 % (36.0-48.0); HEMOGLOBIN. 7.3 g/dL (12.0-16.0)
[2024-05-26 10:23] LABS: MEAN CORPUSCULAR VOLUME 87.4 fL (81.0-99.0)
[2024-05-26 17:34] LABS: PLATELET ESTIMATE NORMAL
[2024-05-26] MEDS: CEFTRIAXONE 1GM/50ML 50 ML IV SCH (19:00)
[2024-05-26] MEDS: VANCOMYCIN 250MG/5ML ORAL SYRINGE PO SCH (21:09)
[2024-05-27] VITALS (10 sets, daily range): BP systolic 122–179; BP diastolic 60–130; PULSE 82–101; RESP 13–24; TEMP 36.83628–37.44744; O2SAT 98–100
[2024-05-27 06:46] LABS: HEMATOCRIT. 21.9 % (36.0-48.0); HEMOGLOBIN. 7.1 g/dL (12.0-16.0); MEAN CORPUSCULAR HEMOGLOBIN 28.4 pg (28.0-32.0); MEAN CORPUSCULAR HGB CONC 32.3 g/dL (31.0-37.0); MEAN CORPUSCULAR VOLUME 87.9 fL (81.0-99.0); MEAN PLATELET VOLUME 8.6 fl (7.4-10.4); PLATELET 387 x1000/uL (130-400); RED BLOOD CELL COUNT 2.49 mill/uL (4.2-5.4); RED CELL DISTRIBUTION WIDTH 15.1 % (11.6-14.6); WHITE BLOOD COUNT 12.7 x1000/uL (4.5-11.0)
[2024-05-27 06:50] LABS: DIFFERENTIAL COMMENT 1
[2024-05-27 07:44] LABS: CARBON DIOXIDE 26 mEq/L (21-32); CHLORIDE 106 mEq/L (98-107); POTASSIUM 3.6 mEq/L (3.5-5.1); SODIUM 138 mEq/L (136-145)
[2024-05-27 07:46] LABS: CALCIUM 8.9 mg/dL (8.7-10.4)
[2024-05-27 07:49] LABS: CREATININE 0.6 mg/dL (0.6-1.0); GLUCOSE 99 mg/dL (70-105)
[2024-05-27 07:51] LABS: UREA NITROGEN BLOOD 14 mg/dL (9-23)
[2024-05-27 10:28] LABS: CLARITY URINE CLEAR (CLEAR); COLOR URINE YELLOW (YELLOW); GLUCOSE URINE NEGATIVE (NEGATIVE); KETONES URINE NEGATIVE (NEGATIVE); LEUKOCYTE ESTERASE URINE NEGATIVE (NEGATIVE); NITRITE URINE NEGATIVE (NEGATIVE); OCCULT BLOOD URINE NEGATIVE (NEGATIVE); PROTEIN URINE NEGATIVE (NEGATIVE); SPECIFIC GRAVITY URINE 1.013 (1.005-1.030); UROBILINOGEN URINE 0.2 E.U./dL (0.2-1.0)
[2024-05-27 12:00] LABS: ANISOCYTOSIS 1+; PLATELET ESTIMATE NORMAL
[2024-05-27] MEDS: CEFTRIAXONE 2GM/50ML 50ML IV SCH (16:08)
[2024-05-28] VITALS (12 sets, daily range): BP systolic 132–145; BP diastolic 67–87; PULSE 82–113; RESP 12–18; TEMP 36.55848–36.9474; O2SAT 98–100
[2024-05-28 05:48] LABS: CHLORIDE 104 mEq/L (98-107); POTASSIUM 3.4 mEq/L (3.5-5.1); SODIUM 138 mEq/L (136-145)
[2024-05-28 05:49] LABS: CARBON DIOXIDE 25 mEq/L (21-32); HEMATOCRIT. 23.4 % (36.0-48.0); HEMOGLOBIN. 7.4 g/dL (12.0-16.0); MEAN CORPUSCULAR HGB CONC 31.7 g/dL (31.0-37.0); MEAN CORPUSCULAR VOLUME 88.3 fL (81.0-99.0); MEAN PLATELET VOLUME 8.6 fl (7.4-10.4); PLATELET 402 x1000/uL (130-400); RED BLOOD CELL COUNT 2.65 mill/uL (4.2-5.4); RED CELL DISTRIBUTION WIDTH 15.1 % (11.6-14.6); WHITE BLOOD COUNT 11.3 x1000/uL (4.5-11.0)
[2024-05-28 05:50] LABS: CALCIUM 9.6 mg/dL (8.7-10.4)
[2024-05-28 05:54] LABS: CREATININE 0.6 mg/dL (0.6-1.0); GLUCOSE 100 mg/dL (70-105); UREA NITROGEN BLOOD 12 mg/dL (9-23)
[2024-05-28 05:55] LABS: DIFFERENTIAL COMMENT 1
[2024-05-28 10:59] LABS: ANISOCYTOSIS 1+; PLATELET ESTIMATE INCREASED
[2024-05-28] MEDS: POTASSIUM CHLORIDE 20MEQ/PACKET GT NR (15:52)
[2024-05-29] VITALS (12 sets, daily range): BP systolic 110–149; BP diastolic 61–99; PULSE 84–97; RESP 9–18; TEMP 36.72516–37.11408; O2SAT 96–100
[2024-05-30] VITALS (13 sets, daily range): BP systolic 131–152; BP diastolic 62–83; PULSE 87–103; RESP 11–17; TEMP 36.6696–36.9474; O2SAT 98–100
[2024-05-31] VITALS (13 sets, daily range): BP systolic 112–149; BP diastolic 54–94; PULSE 87–107; RESP 14–24; TEMP 36.6696–37.2252; O2SAT 97–100
[2024-06-01] VITALS (12 sets, daily range): BP systolic 122–148; BP diastolic 60–95; PULSE 87–119; RESP 12–26; TEMP 36.00288–37.05852; O2SAT 97–100
[2024-06-01] MEDS: LACTOBACILLUS GG CAPSULE PO SCH (09:12)
[2024-06-01] MEDS ORDERED: CLOP-31 NG (09:31)
[2024-06-01] MEDS ORDERED: LIP40 PO (09:31)
[2024-06-01] MEDS ORDERED: MENT71OI TOP (09:31)
[2024-06-01] MEDS ORDERED: FAMO20TA8 NG (09:31)
[2024-06-01] MEDS ORDERED: AMLO10TA80 NG (09:31)
[2024-06-01] MEDS ORDERED: VANJ5 PO (09:31)
[2024-06-01] MEDS ORDERED: METO-385 PO (09:31)
[2024-06-01] MEDS ORDERED: ASPI-1160 NG (09:31)
[2024-06-01] MEDS ORDERED: LACT1CAP77 PO (09:31)
[2024-06-01] MEDS ORDERED: LEVO750T68 MT (09:32)
[2024-06-01] MEDS: LEVOFLOXACIN 250MG TABLET PO SCH (11:04)
[2024-06-02] VITALS (11 sets, daily range): BP systolic 113–148; BP diastolic 65–91; PULSE 83–104; RESP 13–19; TEMP 36.72516–37.61412; O2SAT 97–100
[2024-06-02] MEDS: VANCOMYCIN 250MG/5ML ORAL SYRINGE PO SCH (17:56)
[2024-06-03] VITALS: BP 135/66; PULSE 102; RESP 15; TEMP 36.44736; TEMP 37.2252
[2024-06-03 04:00] VITALS: PULSE 105; RESP 17; TEMP 36.6696
[2024-06-03 07:14] LABS: CHLORIDE 104 mEq/L (98-107); POTASSIUM 3.4 mEq/L (3.5-5.1); SODIUM 139 mEq/L (136-145)
[2024-06-03 07:15] LABS: CARBON DIOXIDE 28 mEq/L (21-32)
[2024-06-03 07:16] LABS: CALCIUM 10.3 mg/dL (8.7-10.4)
[2024-06-03 07:20] LABS: CREATININE 0.6 mg/dL (0.6-1.0); GLUCOSE 95 mg/dL (70-105)
[2024-06-03 07:21] LABS: UREA NITROGEN BLOOD 9 mg/dL (9-23)
[2024-06-03 07:29] LABS: BASOPHILS % 0.8 % (0.0-2.0); EOSINOPHILS % 2.9 % (0.0-5.0); HEMATOCRIT. 23.1 % (36.0-48.0); HEMOGLOBIN. 7.4 g/dL (12.0-16.0); LYMPHOCYTES % 31.3 % (20.0-50.0); MEAN CORPUSCULAR HEMOGLOBIN 28.8 pg (28.0-32.0); MEAN CORPUSCULAR HGB CONC 32.1 g/dL (31.0-37.0); MEAN CORPUSCULAR VOLUME 89.6 fL (81.0-99.0); MEAN PLATELET VOLUME 7.8 fl (7.4-10.4); MONOCYTES % 9.1 % (2.0-8.0); NEUTROPHILS % 55.9 % (40.0-76.0); PLATELET 581 x1000/uL (130-400); RED BLOOD CELL COUNT 2.58 mill/uL (4.2-5.4); RED CELL DISTRIBUTION WIDTH 16.1 % (11.6-14.6); WHITE BLOOD COUNT 9.3 x1000/uL (4.5-11.0)
[2024-06-03 08:00] VITALS: BP 121/70; PULSE 95; RESP 15; TEMP 36.9474; O2SAT 98
[2024-06-03 12:00] VITALS: BP 129/88; PULSE 87; RESP 15; TEMP 37.16964; O2SAT 99
[2024-06-03 16:00] VITALS: BP 114/64; PULSE 92; RESP 15; TEMP 37.00296; O2SAT 99
[2024-06-03 20:00] VITALS: BP 135/72; PULSE 85; RESP 15; TEMP 36.61404; O2SAT 99
[2024-06-04] VITALS: BP 120/100; PULSE 109; RESP 13; TEMP 36.61404; TEMP 36.6696; O2SAT 98
[2024-06-04 04:00] VITALS: BP 124/75; PULSE 101; RESP 15; TEMP 36.78072; TEMP 37.11408; O2SAT 99
[2024-06-04 08:00] VITALS: BP 120/90; PULSE 100; RESP 16; TEMP 37.11408; O2SAT 98
[2024-06-04 12:00] VITALS: BP 141/72; PULSE 91; RESP 15; TEMP 37.16964; O2SAT 100
[2024-06-04 16:00] VITALS: BP 130/73; PULSE 95; RESP 14; TEMP 36.78072; O2SAT 100
[2024-06-04 20:00] VITALS: BP 112/62; PULSE 98; RESP 14; TEMP 36.89184; O2SAT 100
[2024-06-05] VITALS: BP 134/74; PULSE 107; RESP 27; TEMP 36.3918; O2SAT 100
[2024-06-05 04:00] VITALS: BP 134/69; PULSE 107; RESP 12; TEMP 36.114; O2SAT 100
[2024-06-05] MEDS ORDERED: BUPIVACAINE HCL/PF 0.5% (5MG/ML) 10ML ONE (06:54)
[2024-06-05] MEDS ORDERED: LIDOCAINE HCL 1% 10 MG/ML 10ML VIAL ONE (06:54)
[2024-06-05] MEDS ORDERED: FENTANYL CITRATE/PF 50MCG/ML 2ML VIAL ONE (07:34)
[2024-06-05] MEDS ORDERED: LABETALOL 5MG/ML 4ML INJ IV PRN (07:45)
[2024-06-05] MEDS ORDERED: HYDRALAZINE 20MG/ML VIAL IV PRN (07:45)
[2024-06-05] MEDS ORDERED: ONDANSETRON HCL 4MG/2ML INJ IV PRN (07:45)
[2024-06-05] MEDS ORDERED: HYDROMORPHONE HCL/PF 1MG/ML INJ IV PRN ×2 (07:45)
[2024-06-05] MEDS ORDERED: GLYCOPYRROLATE 0.2MG/ML VIAL 5ML IV PRN (07:45)
[2024-06-05] MEDS ORDERED: PHENYLEPHRINE HCL 10MG/ML 1ML IV ONE (08:36)
[2024-06-05] MEDS ORDERED: KETOROLAC 30MG/ML VIAL IV PRN (09:30)
[2024-06-05] MEDS ORDERED: KETOROLAC 15MG/ML VIAL IV PRN (09:32)
[2024-06-05 12:00] VITALS: BP 113/71; PULSE 96; RESP 12; TEMP 36.6696; O2SAT 96
[2024-06-05 16:00] VITALS: BP 108/74; PULSE 129; RESP 20; TEMP 36.6696
[2024-06-05] MEDS ORDERED: NALOXONE HCL 0.4MG/ML VIAL IV PRN (17:00)
[2024-06-05] MEDS: TRAMADOL 50MG TABLET PO PRN (19:52)
[2024-06-05 20:00] VITALS: BP 127/73; PULSE 119; RESP 17; TEMP 37.39188; O2SAT 99
[2024-06-05 20:09] VITALS: BP 127/73; PULSE 79; TEMP 99.1; O2SAT 99
== END 2024-06-05 21:58 | DRG 182 ==
LOC: ER 12:22 → EDBEDREQ 15:19 → EDBEDREQTM 16:25 → EDBEDREQSVC 16:25 → 5EST 17:49 → 3WST 05-01 14:00 → 6WST 05-18 09:36 → 5EST 05-22 09:15
PROVIDERS: ADMIT Internal Medicine; ATTEND Internal Medicine
PROC: 047K36Z Dilation of Right Femoral Artery with Three Drug-eluting Intraluminal Devices, Percutaneous Approach (ICD-10-PCS; principal; 2024-05-01)
PROC: B41F1ZZ Fluoroscopy of Right Lower Extremity Arteries using Low Osmolar Contrast (ICD-10-PCS; 2024-05-01)
PROC: B41G1ZZ Fluoroscopy of Left Lower Extremity Arteries using Low Osmolar Contrast (ICD-10-PCS; 2024-05-01)
PROC: 047M3ZZ Dilation of Right Popliteal Artery, Percutaneous Approach (ICD-10-PCS; 2024-05-01)
PROC: 0DH68UZ Insertion of Feeding Device into Stomach, Via Natural or Artificial Opening Endoscopic (ICD-10-PCS; 2024-05-16)
PROC: 0Y6M0Z9 Detachment at Right Foot, Partial 1st Ray, Open Approach (ICD-10-PCS; 2024-06-05)
PROC: 0Y6M0ZB Detachment at Right Foot, Partial 2nd Ray, Open Approach (ICD-10-PCS; 2024-06-05)
PROC: 0Y6M0ZC Detachment at Right Foot, Partial 3rd Ray, Open Approach (ICD-10-PCS; 2024-06-05)
PROC: 0Y6M0ZD Detachment at Right Foot, Partial 4th Ray, Open Approach (ICD-10-PCS; 2024-06-05)
PROC: 0Y6M0ZF Detachment at Right Foot, Partial 5th Ray, Open Approach (ICD-10-PCS; 2024-06-05)
DX: E11.52 Type 2 diabetes mellitus with diabetic peripheral angiopathy with gangrene (principal); A41.9 Sepsis, unspecified organism; G93.41 Metabolic encephalopathy; D63.8 Anemia in other chronic diseases classified elsewhere; E88.09 Other disorders of plasma-protein metabolism, not elsewhere classified; H53.462 Homonymous bilateral field defects, left side; I63.81 Other cerebral infarction due to occlusion or stenosis of small artery; J18.9 Pneumonia, unspecified organism; L98.411 Non-pressure chronic ulcer of buttock limited to breakdown of skin; E11.65 Type 2 diabetes mellitus with hyperglycemia; N39.0 Urinary tract infection, site not specified; E83.52 Hypercalcemia; E87.6 Hypokalemia; I10 Essential (primary) hypertension; S90.31XA Contusion of right foot, initial encounter; S90.32XA Contusion of left foot, initial encounter; R13.10 Dysphagia, unspecified; R47.01 Aphasia; R62.7 Adult failure to thrive; K29.70 Gastritis, unspecified, without bleeding; K44.9 Diaphragmatic hernia without obstruction or gangrene; R47.1 Dysarthria and anarthria; I80.9 Phlebitis and thrombophlebitis of unspecified site; R13.12 Dysphagia, oropharyngeal phase; K80.20 Calculus of gallbladder without cholecystitis without obstruction; N20.0 Calculus of kidney; N21.0 Calculus in bladder; Z79.02 Long term (current) use of antithrombotics/antiplatelets; Z79.82 Long term (current) use of aspirin; Z79.899 Other long term (current) drug therapy; Z93.1 Gastrostomy status; X58.XXXA Exposure to other specified factors, initial encounter; Y93.89 Activity, other specified; Y92.89 Other specified places as the place of occurrence of the external cause; Y99.8 Other external cause status
CPT/HCPCS: 36415; 37226; 37228; 70551; 71045; 73630; 74176; 75635; 75710; 80048; 80053; 80061; 80202; 80305; 81003; 82270; 82607; 82728; 82746; 82962; 83036; 83540; 83550; 83605; 83735; 84100; 84145; 84439; 84443; 84484; 85025; 85027; 85044; 85347; 86850; 86900; 87070; 87075; 87077; 87186; 88311; 92610; 93005; 93306; 93922; 93971; 97110; 97112; 97162; 97164; 97166; 97168; 97530; 97535; 99291; A6261; C1725; C1769; C1876; C1887; C1893; C1894; C2623; J0360; J0692; J0696; J1200; J1644; J2060; J2185; J2250; J2543; J2704; J3010; J3370; J3475; J3480; J3490; J7060; J7120; J7121; Q9963; Q9967